=== PATIENT | female | born 2000 | race Caucasian/White ===

== ENCOUNTER 2018-09-26 21:19 | Inpatient (IN) | payer MEDICAID ==
[~2018-09-26] VITALS: Ht 149.9 cm; Wt 54.1 kg
[2018-09-26 22:44] VITALS: Ht 149.9 cm; Wt 54.1 kg
[2018-09-26 22:45] VITALS: BP 101/60; PULSE 81; RESP 18
[2018-09-27] MEDS ORDERED: ACETAMINOPHEN 325 MG TAB PO PRN (00:30)
[2018-09-27] MEDS: CEFAZOLIN 1 GM/50 ML (PMX) 50 ML IVPB SCH ×3 (02:04→17:04)
[2018-09-27] MEDS: DEXTROSE 5%-LR 1,000 ML IV SCH ×2 (02:04→08:59)
[2018-09-27] MEDS: ACETAMINOPHEN 500 MG TAB PO PRN (04:22)
[2018-09-27] MEDS ORDERED: TERBUTALINE 1 MG/ML INJ SC ONE (05:30)
[2018-09-27] MEDS: PRENATAL VITAMIN PO SCH (08:59)
[2018-09-27] MEDS: LACTATED RINGER'S 1,000 ML IV SCH (18:18)
[2018-09-27] MEDS ORDERED: MAGNESIUM SULFATE 4 GM/100 ML 100 ML IVPB ONE (18:30)
[2018-09-27] MEDS ORDERED: CA GLUCONATE (GM) 10% 10ML INJ IV PRN (18:30)
[2018-09-27] MEDS: MAGNESIUM SULFATE 20 GM/500 ML 500 ML IV SCH (19:16)
[2018-09-27] MEDS: BETAMET NA PHOS/AC(6 MG/ML) 2 ML INJ SYG IM SCH (20:08)
[2018-09-28] MEDS: CEFAZOLIN 1 GM/50 ML (PMX) 50 ML IVPB SCH ×3 (00:54→17:03)
[2018-09-28] MEDS: LACTATED RINGER'S 1,000 ML IV SCH ×2 (04:54→21:40)
[2018-09-28] MEDS: MAGNESIUM SULFATE 20 GM/500 ML 500 ML IV SCH ×2 (04:58→16:32)
[2018-09-28] MEDS: PRENATAL VITAMIN PO SCH (08:48)
[2018-09-28] MEDS: BETAMET NA PHOS/AC(6 MG/ML) 2 ML INJ SYG IM SCH (20:42)
[2018-09-28] MEDS: ACETAMINOPHEN 500 MG TAB PO PRN (23:13)
[2018-09-29] MEDS: CEFAZOLIN 1 GM/50 ML (PMX) 50 ML IVPB SCH (00:52)
[2018-09-29] MEDS: MAGNESIUM SULFATE 20 GM/500 ML 500 ML IV SCH (02:33)
== END 2018-09-29 09:15 | disposition home or self-care (01) | DRG 831 ==
LOC: OBT 21:19 → L-D 21:28 → EDBD 09-27 00:20 → L-D 09-27 00:20 → OBT 09-27 00:20
PROVIDERS: ADMIT Obstetrics & Gynecology; ATTEND Obstetrics & Gynecology
DX: O23.03 Infections of kidney in pregnancy, third trimester (principal); O60.03 Preterm labor without delivery, third trimester; Z3A.30 30 weeks gestation of pregnancy
CPT/HCPCS: 76775; 76817; 76818; 80048; 81001; 82731; 83735; 85025; 87086; G0463; J0690; J0702; J3105; J3475; J7120; J7121